=== PATIENT | female | born 1980 | race Caucasian/White ===

== ENCOUNTER 2017-05-30 12:38 | Day surgery (SDC) | payer BC ==
[~2017-05-30 12:38] MED LIST: Lactated Ringers 1,000 ML IV SCH; Lidocaine 1% 4 ML ONE; Lidocaine 1%/Sod Bicarbonate in NS 8.4% 1 ML Syringe PRN; Midazolam 1 MG/ML 2 ML SDV ONE; Propofol 200 MG/20 ML SDV ONE; Sodium Chloride 0.9% 10 ML Syringe FLUSH PRN; ceFAZolin 1 GM Vial ONE; fentaNYL 100 MCG/2 ML SDV ONE
[2017-05-30] MEDS ORDERED: Lidocaine 1% 4 ML ONE (12:43)
[2017-05-30] MEDS ORDERED: Propofol 200 MG/20 ML SDV ONE (12:43)
[2017-05-30] MEDS ORDERED: fentaNYL 100 MCG/2 ML SDV ONE (12:43)
--- NOTE | 2017-05-30 12:55 | PCM.PREANE ---
Preanesthetic Assessment - Anesthesia/Transfusion/Family Hx Anesthesia History: Prior Anesthesia Without Reaction Family History of Anesthesia Reaction: No Transfusion History: No Prior Transfusion(s) Intubation History: Unknown - Review of Systems General: No Symptoms (recently getting over a cold with residual cough with phlegm noted.) Pulmonary: No Symptoms (Attempting to quit smoking: smoker of less than 1 pack/ day times 10 years.), Cough, Sputum Cardiovascular: No Symptoms Gastrointestinal: No Symptoms Neurological: No Symptoms Other: Reports: Neck Pain (fell on ice 2016 with neck injury noted.) - Physical Assessment NPO Status Date: 05/29/17 NPO Status Time: 17:30 Pulse: 102 O2 Sat by Pulse Oximetry: 100 Respiratory Rate: 16 Blood Pressure: 109/65 Temperature: 36.9 C Vital Signs: Last Vital Signs Temp 37.1 C 05/30/17 12:35 Pulse 102 H 05/30/17 12:35 Resp 16 05/30/17 12:35 BP 109/65 05/30/17 12:35 Pulse Ox 100 05/30/17 12:35 Height: 1.73 m Weight: 82.1 kg ASA Class: 1 Mental Status: Alert & Oriented x3 Airway Class: Mallampati = 2 Dentition: Reports: Normal Dentition, Caries Thyro-Mental Finger Breadths: 3 Mouth Opening Finger Breadths: 3 ROM/Head Extension: Full Lungs: Clear to Auscultation, Normal Respiratory Effort Cardiovascular: Regular Rate, Regular Rhythm - Lab Values: Laboratory Last Values Urine HCG, Qual Negative (NEGATIVE) 05/30/17 12:38 - Allergies Allergies/Adverse Reactions: Allergies Allergy/AdvReac Type Severity Reaction Status Date / Time No Known Allergies Allergy Verified 05/29/17 16:24 - Anesthesia Plan Pre-Op Medication Ordered: None - Acknowledgements Anesthesia Type Planned: MAC Pt an Appropriate Candidate for the Planned Anesthesia: Yes Alternatives and Risks of Anesthesia Discussed w Pt/Guardian: Yes Pt/Guardian Understands and Agrees with Anesthesia Plan: Yes PreAnesthesia Questionnaire HEENT History: Reports: Allergic Rhinitis Cardiovascular History: Reports: None Respiratory History: Reports: None Gastrointestinal History: Reports: Hemorrhoids, Other (See Below) Other Gastrointestinal History: abdominal pain Genitourinary History: Reports: None BEHAVIORAL INTERVENTION SPECIALIST History: Reports: None Musculoskeletal History: Reports: Other (See Below) Other Musculoskeletal History: cervical strain, herniated cerical disc, neck pain, arm radiculopathy, Right foot surgery with hardware Neurological History: Reports: None Psychiatric History: Reports: None Endocrine/Metabolic History: Reports: None Hematologic History: Reports: None Immunologic History: Reports: None Oncologic (Cancer) History: Reports: None Dermatologic History: Reports: None - Past Surgical History HEENT Surgical History: Reports: None Cardiovascular Surgical History: Reports: None Respiratory Surgical History: Reports: None Female Surgical History: Reports: None Male Surgical History: Reports: None Endocrine Surgical History: Reports: None Neurological Surgical History: Reports: None Musculoskeletal Surgical History: Reports: ORIF Oncologic Surgical History: Reports: None Dermatological Surgical History: Reports: None - SUBSTANCE USE Smoking Status *Q: Former Smoker Recreational Drug Use History: No - HOME MEDS Home Medications: Home Meds Fluticasone Propionate [Flonase Allergy Relief] 1 spray NASBOTH ASDIRECTED PRN 05/29/17 [History] Multivitamin [Daily Ruth] 1 tab PO DAILY 05/29/17 [History] Varenicline Tartrate [Chantix] 1 mg PO DAILY 05/29/17 [History] - CURRENT (IN HOUSE) MEDS Current Meds: Current Medications Lactated Ringer's (Ringers, Lactated) 1,000 mls @ 125 mls/hr IV ASDIRECTED BRITTANY Stop: 05/30/17 23:00 Lidocaine/Sodium Bicarbonate (Buffered Lidocaine 1% In Ns 8.4%) 0.25 ml .XX ONETIME PRN PRN Reason: Prior to IV Start Stop: 05/30/17 18:00 Sodium Chloride (Saline Flush) 10 ml FLUSH ASDIRECTED PRN PRN Reason: Keep Vein Open Stop: 05/30/17 18:00 Discontinued Medications Cefazolin Sodium (Ancef) Confirm Administered Dose 2 gm .ROUTE .STK-MED ONE Stop: 05/30/17 07:36 Fentanyl (Sublimaze) Confirm Administered Dose 100 mcg .ROUTE .STK-MED ONE Stop: 05/30/17 07:36 Fentanyl (Sublimaze) Confirm Administered Dose 100 mcg .ROUTE .STK-MED ONE Stop: 05/30/17 12:44 Lidocaine HCl (Xylocaine-Mpf 1%) Confirm Administered Dose 4 mls @ as directed .ROUTE .STK-MED ONE Stop: 05/30/17 07:36 Lidocaine HCl (Xylocaine-Mpf 1%) Confirm Administered Dose 4 mls @ as directed .ROUTE .STK-MED ONE Stop: 05/30/17 12:44 Midazolam HCl (Versed 1 Mg/Ml) Confirm Administered Dose 2 mg .ROUTE .STK-MED ONE Stop: 05/30/17 07:36 Propofol (Diprivan 20 Ml) Confirm Administered Dose 200 mg .ROUTE .STK-MED ONE Stop: 05/30/17 07:36 Propofol (Diprivan 20 Ml) Confirm Administered Dose 200 mg .ROUTE .STK-MED ONE Stop: 05/30/17 12:44
--- NOTE | 2017-05-30 13:23 | PCM48HPAN ---
Post Anesthesia Note - EVALUATION WITHIN 48HRS OF ANESTHETIC Vital Signs in Normal Range: Yes Patient Participated in Evaluation: Yes Respiratory Function Stable: Yes Airway Patent: Yes Cardiovascular Function Stable: Yes Hydration Status Stable: Yes Pain Control Satisfactory: Yes Nausea and Vomiting Control Satisfactory: Yes Mental Status Recovered: Yes
--- NOTE | 2017-05-30 13:26 | PCM.OPNOTE ---
- General Post-Op/Procedure Note Date of Surgery/Procedure: 05/30/17 Operative Procedure(s): 1. Anoscopy. 2. 2 column rubber band ligation of internal hemorrhoids Findings: Prominent left lateral and right posterior hemorrhoidal columns Pre Op Diagnosis: Pruritus ani Post-Op Diagnosis: Internal hemorrhoids Anesthesia Technique: MAC, Moderate Sedation Primary Surgeon: Jony Hogue Pathology: None EBL in mLs: 0 Complications: None Condition: Good Free Text/Narrative:: After adequate IV sedation and analgesia with monitoring the patient was placed in the prone jackknife position with her buttocks taped. Perianal inspection revealed no inflammation and no fissures or fistulas. Digital rectal examination revealed a normal sphincter tone. Anoscopy revealed no fissures in the anterior and posterior locations. The left lateral and right posterior hemorrhoidal columns were slightly enlarged. I placed rubber bands above the dentate line in these 2 areas. She tolerated the procedure well and there were no complications.
[2017-05-30 13:27] VITALS: BP 100/59
== END 2017-05-30 13:55 | disposition home or self-care (01) ==
LOC: JD.SDS 12:38
PROVIDERS: ATTEND Surgery
DX: K64.8 Other hemorrhoids (principal); M50.20 Other cervical disc displacement, unspecified cervical region; M54.10 Radiculopathy, site unspecified; Z79.899 Other long term (current) drug therapy; Z98.890 Other specified postprocedural states; Z87.891 Personal history of nicotine dependence
CPT/HCPCS: 46221; 81025; J0690; J2250; J7120; 00902; J2704; J3010